=== PATIENT | female | born 1990 | race Two or more races ===

== ENCOUNTER 2019-09-05 17:49 | Emergency (ER) | payer MEDICAID ==
[~2019-09-05] VITALS: Ht 157.5 cm; Wt 74.8 kg
--- NOTE | 2019-09-05 19:10 | NUR ---
Report given to catherine RUSSELL
--- NOTE | 2019-09-05 19:26 | NUR ---
pt out of er for XRAY
--- NOTE | 2019-09-05 19:52 | NUR ---
Pt back from radiology
--- NOTE | 2019-09-05 20:02 | NUR ---
Patient discharged to home in stable condition. Written and verbal after care instructions given. Patient verbalizes understanding of instructions. Stressed follow up or return to ER for worsening s/s. aa/ox4 ambulatory with steady gait all belongings with pt no s/s of distress
[2019-09-05 20:03] VITALS: BP 108/71
== END 2019-09-05 20:04 | disposition home or self-care (01) ==
LOC: ER 17:49
DX: M54.12 Radiculopathy, cervical region (principal)
CPT/HCPCS: A4663